=== PATIENT | male | born 1940 | race Caucasian/White ===

== ENCOUNTER 2016-11-20 13:23 | Inpatient (IN) | payer MEDICAID, MEDICARE, OTHER ==
[~2016-11-20] VITALS: Ht 182.9 cm; Wt 92.0 kg
[~2016-11-20 13:23] MED LIST: ASPI-556 PO; ATOR20TA86 PO; BISA10S PR; INSLAN SQ; INSU100C3 SQ; LISI-660 PO; METO-323 PO; PANT40TA25 PO; RIVA20TA PO; SENN8.6T52 PO
[2016-11-20 13:41] LABS: GLUCOSE,POINT OF CARE 241 MG/DL (70-110)
[2016-11-20 14:07] LABS: GLUCOSE COMMENT 1 Doctor Notified; GLUCOSE,POINT OF CARE 282 MG/DL (70-110)
[2016-11-20] MEDS ORDERED: ACETAMINOPHEN 500 MG TABLET PO ONE (14:15)
[2016-11-20] MEDS ORDERED: SODIUM CHLORIDE 0.9% 500 ML IV ONE ×2 (14:15→15:15)
[2016-11-20 14:28] LABS: EOSINOPHILS % (AUTO) 0.4 % (1.0-6.0); HEMATOCRIT 39.8 % (41-53); HEMOGLOBIN 12.8 g/dL (13.5-17.5); LYMPHOCYTES # (AUTO) 0.7 K/uL (1.0-4.8); LYMPHOCYTES % (AUTO) 4.7 % (22.0-44.0); MEAN CORPUSCULAR HEMOGLOBIN 29.2 pg (26.0-34.0); MEAN CORPUSCULAR HGB CONC 32.2 G/dL (31.0-37.0); MEAN CORPUSCULAR VOLUME 91 fL (80-100); MONOCYTES # (AUTO) 0.8 K/uL (0.1-1.0); MONOCYTES % (AUTO) 5.2 % (2.0-9.0); NEUTROPHILS # (AUTO) 13.4 K/uL (1.8-7.7); PLATELET COUNT (AUTO) 465 K/uL (150-450); RED BLOOD CELL COUNT(AUTO) 4.39 MIL/uL (4.50-5.90); RED CELL DISTRIBUTION WIDTH 14.1 % (11.5-14.5); WHITE BLOOD COUNT (AUTO) 14.9 K/uL (4.5-11.0)
[2016-11-20 14:31] LABS: NEUTROPHILS % (AUTO) 89.7 % (40.0-70.0)
[2016-11-20 14:33] LABS: ANION GAP 9 mmol/L (8-16); CALCIUM, TOTAL 8.9 mg/dL (8.8-10.5); CARBON DIOXIDE 29 mmol/L (22-29); CHLORIDE 99 mmol/L (98-107); CREATININE 1.26 mg/dL (0.60-1.30); GLOMERULAR FILTR. RATE CALC 56 mL/min (>60); POTASSIUM 3.1 mmol/L (3.5-5.1); SODIUM SERUM 137 mmol/L (136-145); UREA NITROGEN, BLOOD 22 mg/dL (7-18)
[2016-11-20 14:41] LABS: AMMONIA 29 umol/L (11-32)
[2016-11-20 14:42] LABS: TROPONIN I < 0.02 ng/mL (0.00-0.05)
[2016-11-20 14:55] LABS: B-TYPE NATRIURETIC PEPTIDE 137 pg/mL (0-100)
[2016-11-20 14:57] LABS: ALANINE AMINOTRANSFERASE 17 U/L (12-78); ALBUMIN 2.3 g/dL (3.4-5.0); ASPARTATE AMINOTRANSFERASE 25 U/L (15-37); BILIRUBIN,TOTAL 0.7 mg/dL (0.1-1.0); CREATINE KINASE MB 1.8 ng/mL (0-5); CREATINE KINASE, TOTAL 248 U/L (39-308)
[2016-11-20 15:08] LABS: INR 1.2 (0.9-1.1); PROTHROMBIN TIME 12.3 SEC (9.4-11.6)
[2016-11-20] MEDS ORDERED: POTASSIUM CHLORIDE 20 MEQ ER TABLET PO ONE (15:15)
[2016-11-20 16:29] LABS: RBC MORPHOLOGY COMMENT NORMAL RBC MORPH
[2016-11-20 16:30] LABS: ADD UA MICROSCOPIC YES; APPEARANCE,URINE CLEAR (CLEAR); GLUCOSE, URINE (UA) >=1000 mg/dL (NEGATIVE); KETONES,URINE 40 mg/dL (NEGATIVE); LEUKOCYTE ESTERASE ,URINE NEGATIVE (NEGATIVE); OCCULT BLOOD,URINE NEGATIVE (NEGATIVE); PROTEIN,URINE NEGATIVE (NEGATIVE)
[2016-11-20 16:33] LABS: RBC,URINE None Seen /HPF (0-2); WBC,URINE 0-2 /HPF (0-5)
[2016-11-20] MEDS ORDERED: VANCOMYCIN HCL 1 GM/D5% WATER 200 ML IV ONE (16:45)
[2016-11-20] MEDS ORDERED: CefTRIAXone SODIUM 2 GM in DEXTROSE 5%-WATER 50 ML IV ONE (16:45)
[2016-11-20 17:16] LABS: REFLEX LACTIC ACID? YES YES
[2016-11-20 17:27] LABS: GLUCOSE,POINT OF CARE 243 MG/DL (70-110)
[2016-11-20 18:17] LABS: INFLUENZA TYPE B NEGATIVE FOR TYPE B (NEGATIVE)
[2016-11-20] MEDS ORDERED: SODIUM CHLORIDE 0.9% 1,000 ML IV ONE (19:15)
[2016-11-20 21:41] VITALS: BP 120/64
[2016-11-21] VITALS (7 sets, daily range): BP systolic 108–138; BP diastolic 60–76
[2016-11-21] MEDS ORDERED: INFLUENZA VIRUS VACCINE QVS 2016-17 (3YR+)/PF 60 MCG/0.5 ML SYRINGE IM ONE (03:15)
[2016-11-21] MEDS ORDERED: PNEUMOCOCCAL VACCINE POLYVALENT 0.5 ML VIAL [PPSV23] IM ONE (03:15)
[2016-11-21 06:37] LABS: EOSINOPHILS % (AUTO) 1.1 % (1.0-6.0); HEMATOCRIT 34.3 % (41-53); LYMPHOCYTES # (AUTO) 0.8 K/uL (1.0-4.8); LYMPHOCYTES % (AUTO) 5.4 % (22.0-44.0); MEAN CORPUSCULAR HEMOGLOBIN 29.2 pg (26.0-34.0); MEAN CORPUSCULAR HGB CONC 32.1 G/dL (31.0-37.0); MEAN CORPUSCULAR VOLUME 91 fL (80-100); MONOCYTES # (AUTO) 0.8 K/uL (0.1-1.0); MONOCYTES % (AUTO) 5.8 % (2.0-9.0); NEUTROPHILS # (AUTO) 12.3 K/uL (1.8-7.7); PLATELET COUNT (AUTO) 464 K/uL (150-450); RED BLOOD CELL COUNT(AUTO) 3.76 MIL/uL (4.50-5.90); RED CELL DISTRIBUTION WIDTH 13.9 % (11.5-14.5); WHITE BLOOD COUNT (AUTO) 14.1 K/uL (4.5-11.0)
[2016-11-21] MEDS ORDERED: DEXTROSE 50%-WATER 25 GM/50 ML SYRINGE IVP PRN (06:45)
[2016-11-21] MEDS ORDERED: *CLINICAL-CEFTAROLINE DOSING CLINICAL ONE (06:45)
[2016-11-21] MEDS ORDERED: POTASSIUM CHLORIDE 20 MEQ ER TABLET PO PRN (06:45)
[2016-11-21] MEDS ORDERED: ACETAMINOPHEN 325 MG TABLET PO PRN (07:00)
[2016-11-21] MEDS ORDERED: ONDANSETRON HCL 4 MG/2 ML VIAL IVP PRN (07:00)
[2016-11-21] MEDS ORDERED: MAGNESIUM HYDROXIDE SUSPENSION 30 ML UDCUP PO PRN (07:00)
[2016-11-21] MEDS ORDERED: 0.9% SODIUM CHLORIDE 10 ML SYRINGE IVP PRN (07:00)
[2016-11-21 07:18] LABS: NEUTROPHILS % (AUTO) 87.7 % (40.0-70.0)
[2016-11-21 07:53] LABS: ANION GAP 10 mmol/L (8-16); CALCIUM, TOTAL 8.2 mg/dL (8.8-10.5); CARBON DIOXIDE 26 mmol/L (22-29); CHLORIDE 102 mmol/L (98-107); CREATININE 0.92 mg/dL (0.60-1.30); GLOMERULAR FILTR. RATE CALC > 60 mL/min (>60); POTASSIUM 3.3 mmol/L (3.5-5.1); SODIUM SERUM 138 mmol/L (136-145); UREA NITROGEN, BLOOD 13 mg/dL (7-18)
[2016-11-21] MEDS ORDERED: PANTOPRAZOLE SODIUM 40 MG DR TABLET PO SCH (09:00)
[2016-11-21] MEDS: BISACODYL 10 MG RECTAL RECTAL SUPPOSITORY PR SCH ×2 (09:00→09:17)
[2016-11-21] MEDS: CEFTAROLINE 600 MG/D5W 250 ML IV SCH ×2 (09:15→21:56)
[2016-11-21] MEDS: PANTOPRAZOLE SODIUM 40 MG/VIAL IVP SCH (09:15)
[2016-11-21] MEDS: DOCUSATE SODIUM 100 MG CAPSULE PO SCH ×2 (09:15→21:57)
[2016-11-21] MEDS: SODIUM CHLORIDE 0.9% 1,000 ML IV SCH ×2 (09:15→21:57)
[2016-11-21] MEDS: METOPROLOL SUCCINATE 25 MG ER TABLET PO SCH (09:16)
[2016-11-21] MEDS: SENNA 187 MG TABLET PO SCH (09:16)
[2016-11-21] MEDS: ASPIRIN 81 MG EC TABLET PO SCH (09:16)
[2016-11-21] MEDS: LISINOPRIL 5 MG TABLET PO SCH ×2 (09:17→21:57)
[2016-11-21] MEDS: PIPERACILLIN/TAZO 3.375 GM/D5W 50 ML IV SCH ×3 (11:07→23:37)
[2016-11-21] MEDS ORDERED: IOVERSOL 350 MG/ML 150 ML VIAL ONE (14:14)
[2016-11-21] MEDS ORDERED: BARIUM SULFATE 0.1% SUSPENSION 450 ML BOTTLE ONE (14:15)
[2016-11-21] MEDS ORDERED: SODIUM CHLORIDE 0.9% 100 ML ONE (14:15)
[2016-11-21] MEDS: MULTIVITAMINS WITH MINERALS, THERAPEUTIC TABLET PO SCH (17:53)
[2016-11-21] MEDS: INSULIN ASPART 100 UNITS/ML SQ PRN ×2 (17:54→21:59)
[2016-11-21] MEDS ORDERED: RIVAROXABAN 20 MG TABLET PO SCH (18:00)
[2016-11-21] MEDS: ATORVASTATIN CALCIUM 20 MG TABLET PO SCH (21:57)
[2016-11-21] MEDS: OxyCODONE HCL/ACETAMINOPHEN 5-325 MG TABLET PO PRN (21:57)
[2016-11-22] MEDS: SODIUM CHLORIDE 0.9% 1,000 ML IV SCH ×3 (02:45→22:22)
[2016-11-22 04:29] VITALS: BP 105/62
[2016-11-22] MEDS: PIPERACILLIN/TAZO 3.375 GM/D5W 50 ML IV SCH ×4 (04:32→22:22)
[2016-11-22 06:57] LABS: BASOPHILS # (AUTO) 0.02 K/uL (0.00-0.20); BASOPHILS % (AUTO) 0.2 % (0.0-2.0); EOSINOPHILS # (AUTO) 0.27 K/uL (0.00-0.70); EOSINOPHILS % (AUTO) 2.38 % (1.0-6.0); HEMATOCRIT 32.9 % (41-53); HEMOGLOBIN 10.9 g/dL (13.5-17.5); LYMPHOCYTES # (AUTO) 1.2 K/uL (1.0-4.8); LYMPHOCYTES % (AUTO) 10.3 % (22.0-44.0); MEAN CORPUSCULAR HGB CONC 33.3 G/dL (31.0-37.0); MEAN CORPUSCULAR VOLUME 90 fL (80-100); MONOCYTES # (AUTO) 0.6 K/uL (0.1-1.0); MONOCYTES % (AUTO) 5.7 % (2.0-9.0); NEUTROPHILS # (AUTO) 9.1 K/uL (1.8-7.7); NEUTROPHILS % (AUTO) 81.3 % (40.0-70.0); PLATELET COUNT (AUTO) 382 K/uL (150-450); RED BLOOD CELL COUNT(AUTO) 3.65 MIL/uL (4.50-5.90); RED CELL DISTRIBUTION WIDTH 14.2 % (11.5-14.5); WHITE BLOOD COUNT (AUTO) 11.2 K/uL (4.5-11.0)
[2016-11-22 07:03] LABS: ANION GAP 4 mmol/L (8-16); CARBON DIOXIDE 31 mmol/L (22-29); CHLORIDE 103 mmol/L (98-107); CREATININE 1.12 mg/dL (0.60-1.30); GLOMERULAR FILTR. RATE CALC > 60 mL/min (>60); POTASSIUM 3.5 mmol/L (3.5-5.1); SODIUM SERUM 138 mmol/L (136-145); UREA NITROGEN, BLOOD 16 mg/dL (7-18)
[2016-11-22 07:08] VITALS: BP 105/54
[2016-11-22] MEDS: PANTOPRAZOLE SODIUM 40 MG/VIAL IVP SCH (08:31)
[2016-11-22] MEDS: CEFTAROLINE 600 MG/D5W 250 ML IV SCH ×2 (08:31→20:29)
[2016-11-22] MEDS: DOCUSATE SODIUM 100 MG CAPSULE PO SCH ×2 (08:31→20:29)
[2016-11-22] MEDS: SENNA 187 MG TABLET PO SCH (08:32)
[2016-11-22] MEDS: MULTIVITAMINS WITH MINERALS, THERAPEUTIC TABLET PO SCH (08:32)
[2016-11-22] MEDS: LISINOPRIL 5 MG TABLET PO SCH ×2 (08:32→20:29)
[2016-11-22] MEDS: BISACODYL 10 MG RECTAL RECTAL SUPPOSITORY PR SCH (08:32)
[2016-11-22] MEDS: POTASSIUM CHL 10 MEQ/WATER 50 ML IV PRN ×3 (10:53→15:40)
[2016-11-22 11:08] VITALS: BP 105/54
[2016-11-22] MEDS: ASPIRIN 81 MG EC TABLET PO SCH (12:03)
[2016-11-22] MEDS: METOPROLOL SUCCINATE 25 MG ER TABLET PO SCH (12:03)
[2016-11-22] MEDS: INSULIN ASPART 100 UNITS/ML SQ PRN ×3 (12:07→20:31)
[2016-11-22 15:25] VITALS: BP 104/58
[2016-11-22] MEDS: OxyCODONE HCL/ACETAMINOPHEN 5-325 MG TABLET PO PRN (17:02)
[2016-11-22 17:33] LABS: GLUCOSE,POINT OF CARE 141 MG/DL (70-110)
[2016-11-22 17:33] LABS: GLUCOSE,POINT OF CARE 202 MG/DL (70-110)
[2016-11-22 19:17] VITALS: BP 106/49
[2016-11-22] MEDS: ATORVASTATIN CALCIUM 20 MG TABLET PO SCH (20:29)
[2016-11-22 23:36] VITALS: BP 98/56
[2016-11-23] VITALS (7 sets, daily range): BP systolic 95–118; BP diastolic 50–72
[2016-11-23] MEDS: OxyCODONE HCL/ACETAMINOPHEN 5-325 MG TABLET PO PRN (00:16)
[2016-11-23] MEDS: PIPERACILLIN/TAZO 3.375 GM/D5W 50 ML IV SCH ×2 (04:08→10:00)
[2016-11-23] MEDS: INSULIN ASPART 100 UNITS/ML SQ PRN ×4 (06:16→21:23)
[2016-11-23] MEDS ORDERED: VANCOMYCIN HCL 1.5 GM in DEXTROSE 5%-WATER 250 ML IV ONE (08:15)
[2016-11-23] MEDS: LISINOPRIL 5 MG TABLET PO SCH ×2 (09:00→21:00)
[2016-11-23] MEDS: PANTOPRAZOLE SODIUM 40 MG/VIAL IVP SCH (09:00)
[2016-11-23] MEDS: SENNA 187 MG TABLET PO SCH (09:00)
[2016-11-23] MEDS: BISACODYL 10 MG RECTAL RECTAL SUPPOSITORY PR SCH (09:00)
[2016-11-23] MEDS: MULTIVITAMINS WITH MINERALS, THERAPEUTIC TABLET PO SCH (09:00)
[2016-11-23] MEDS: METOPROLOL SUCCINATE 25 MG ER TABLET PO SCH (09:00)
[2016-11-23] MEDS: DOCUSATE SODIUM 100 MG CAPSULE PO SCH ×2 (09:00→21:00)
[2016-11-23] MEDS: ASPIRIN 81 MG EC TABLET PO SCH (09:00)
[2016-11-23] MEDS: SODIUM CHLORIDE 0.9% 1,000 ML IV SCH (09:01)
[2016-11-23] MEDS: ATORVASTATIN CALCIUM 20 MG TABLET PO SCH (21:19)
[2016-11-23] MEDS: VANCOMYCIN HCL 1 GM/D5% WATER 200 ML IV SCH (21:20)
[2016-11-24] MEDS: SODIUM CHLORIDE 0.9% 1,000 ML IV SCH ×2 (03:40→20:02)
[2016-11-24 04:01] VITALS: BP 132/71
[2016-11-24 05:37] LABS: GLUCOSE,POINT OF CARE 162 MG/DL (70-110)
[2016-11-24] MEDS ORDERED: HYDROGEN PEROXIDE 473 ML SOLUTION ONE (06:44)
[2016-11-24] MEDS ORDERED: SODIUM CHLORIDE 0.9% 1,000 ML IV ONE (07:16)
[2016-11-24 07:33] LABS: GLUCOSE COMMENT 1 Received Meds; GLUCOSE,POINT OF CARE 264 MG/DL (70-110)
[2016-11-24 07:40] LABS: ANION GAP 9 mmol/L (8-16); CALCIUM, TOTAL 8.4 mg/dL (8.8-10.5); CARBON DIOXIDE 28 mmol/L (22-29); CHLORIDE 103 mmol/L (98-107); CREATININE 0.96 mg/dL (0.60-1.30); GLOMERULAR FILTR. RATE CALC > 60 mL/min (>60); SODIUM SERUM 140 mmol/L (136-145); UREA NITROGEN, BLOOD 12 mg/dL (7-18)
[2016-11-24] MEDS ORDERED: FentaNYL CITRATE-PF 100 MCG/2 ML VIAL IVP PRN (08:15)
[2016-11-24] MEDS ORDERED: MEPERIDINE-PF 25 MG/ML SYRINGE IVP PRN (08:15)
[2016-11-24] MEDS ORDERED: HYDROmorphone 2 MG/ML SYRINGE IVP PRN (08:15)
[2016-11-24] MEDS ORDERED: OXYGEN THERAPY IH SCH (08:20)
[2016-11-24] MEDS ORDERED: MEPERIDINE-PF 25 MG/ML SYRINGE ONE (08:38)
[2016-11-24] MEDS ORDERED: HYDROmorphone 2 MG/ML SYRINGE ONE (08:39)
[2016-11-24] MEDS: BISACODYL 10 MG RECTAL RECTAL SUPPOSITORY PR SCH (09:00)
[2016-11-24] MEDS: PANTOPRAZOLE SODIUM 40 MG/VIAL IVP SCH (09:32)
[2016-11-24] MEDS: MULTIVITAMINS WITH MINERALS, THERAPEUTIC TABLET PO SCH (09:32)
[2016-11-24] MEDS: OxyCODONE HCL/ACETAMINOPHEN 5-325 MG TABLET PO PRN (09:32)
[2016-11-24] MEDS: LISINOPRIL 5 MG TABLET PO SCH ×2 (09:32→21:00)
[2016-11-24] MEDS: METOPROLOL SUCCINATE 25 MG ER TABLET PO SCH (09:33)
[2016-11-24] MEDS: DOCUSATE SODIUM 100 MG CAPSULE PO SCH ×2 (09:33→20:03)
[2016-11-24] MEDS: ASPIRIN 81 MG EC TABLET PO SCH (09:33)
[2016-11-24] MEDS: SENNA 187 MG TABLET PO SCH (09:33)
[2016-11-24] MEDS: VANCOMYCIN HCL 1 GM/D5% WATER 200 ML IV SCH ×2 (10:32→20:02)
[2016-11-24 11:04] VITALS: BP 82/53
[2016-11-24] MEDS: INSULIN ASPART 100 UNITS/ML SQ PRN ×3 (11:26→20:36)
[2016-11-24] MEDS ORDERED: PROPOFOL 1% 20 ML VIAL IVP ONE (12:00)
[2016-11-24] MEDS ORDERED: SUCCINYLCHOLINE CHLORIDE 20 MG/ML 10 ML VIAL IVP ONE (12:00)
[2016-11-24] MEDS ORDERED: FentaNYL CITRATE-PF 250 MCG/5 ML VIAL IVP ONE (12:00)
[2016-11-24] MEDS ORDERED: MIDAZOLAM HCL 2 MG/2 ML VIAL IVP ONE (12:00)
[2016-11-24] MEDS ORDERED: LIDOCAINE HCL/PF 2% 5 ML VIAL INJ ONE (12:00)
[2016-11-24 12:36] LABS: GLUCOSE COMMENT 1 Received Meds; GLUCOSE,POINT OF CARE 284 MG/DL (70-110)
[2016-11-24 15:15] VITALS: BP 112/60
[2016-11-24 19:38] VITALS: BP 83/47
[2016-11-24] MEDS: ATORVASTATIN CALCIUM 20 MG TABLET PO SCH (20:03)
[2016-11-24 20:27] LABS: GLUCOSE COMMENT 1 Received Meds; GLUCOSE,POINT OF CARE 356 MG/DL (70-110)
[2016-11-24 23:04] VITALS: BP 101/61
[2016-11-25] MEDS: SODIUM CHLORIDE 0.9% 1,000 ML IV SCH ×2 (04:00→14:00)
[2016-11-25 05:25] VITALS: BP 105/67
[2016-11-25 06:16] LABS: GLUCOSE COMMENT 1 Received Meds; GLUCOSE,POINT OF CARE 312 MG/DL (70-110)
[2016-11-25] MEDS: INSULIN ASPART 100 UNITS/ML SQ PRN ×3 (06:32→17:37)
[2016-11-25] MEDS: OxyCODONE HCL/ACETAMINOPHEN 5-325 MG TABLET PO PRN ×2 (06:33→17:53)
[2016-11-25 07:27] LABS: GLUCOSE COMMENT 1 Received Meds; GLUCOSE,POINT OF CARE 217 MG/DL (70-110)
[2016-11-25] MEDS: VANCOMYCIN HCL 1 GM/D5% WATER 200 ML IV SCH (07:59)
[2016-11-25] MEDS: PANTOPRAZOLE SODIUM 40 MG/VIAL IVP SCH (08:01)
[2016-11-25] MEDS: LISINOPRIL 5 MG TABLET PO SCH (08:01)
[2016-11-25] MEDS: SENNA 187 MG TABLET PO SCH (08:02)
[2016-11-25] MEDS: ASPIRIN 81 MG EC TABLET PO SCH (08:02)
[2016-11-25] MEDS: DOCUSATE SODIUM 100 MG CAPSULE PO SCH (08:02)
[2016-11-25] MEDS: BISACODYL 10 MG RECTAL RECTAL SUPPOSITORY PR SCH (08:03)
[2016-11-25] MEDS: METOPROLOL SUCCINATE 25 MG ER TABLET PO SCH (08:10)
[2016-11-25] MEDS: MULTIVITAMINS WITH MINERALS, THERAPEUTIC TABLET PO SCH (08:10)
[2016-11-25 08:21] VITALS: BP 106/64
[2016-11-25 08:41] LABS: ANION GAP 2 mmol/L (8-16); CARBON DIOXIDE 33 mmol/L (22-29); CHLORIDE 104 mmol/L (98-107); CREATININE 1.12 mg/dL (0.60-1.30); GLOMERULAR FILTR. RATE CALC > 60 mL/min (>60); POTASSIUM 4.1 mmol/L (3.5-5.1); SODIUM SERUM 139 mmol/L (136-145); UREA NITROGEN, BLOOD 18 mg/dL (7-18)
[2016-11-25 11:52] VITALS: BP 105/61
[2016-11-25 12:52] LABS: GLUCOSE COMMENT 1 Received Meds; GLUCOSE,POINT OF CARE 177 MG/DL (70-110)
[2016-11-25] MEDS ORDERED: VANC1PLA10 IV (15:04)
[2016-11-25] MEDS ORDERED: HEPARIN SODIUM 1000 UNITS/NS 500 ML ONE (16:12)
[2016-11-25] MEDS ORDERED: SODIUM CHLORIDE 0.9% 0 ML IV ONE (17:41)
[2016-11-25 17:42] LABS: GLUCOSE COMMENT 1 Received Meds; GLUCOSE,POINT OF CARE 169 MG/DL (70-110)
[2016-11-25] MEDS ORDERED: SODIUM CL IRRIG SOLN BOTTLE 250 ML IRRIG ONE ×2 (17:42→18:02)
[2016-11-28 11:48] LABS: GLUCOSE,POINT OF CARE 283 MG/DL (70-110)
[2016-11-28 11:49] LABS: GLUCOSE COMMENT 1 Received Meds; GLUCOSE,POINT OF CARE 294 MG/DL (70-110)
[2016-11-28 11:49] LABS: GLUCOSE COMMENT 1 Received Meds; GLUCOSE,POINT OF CARE 209 MG/DL (70-110)
[2016-11-28 11:49] LABS: GLUCOSE COMMENT 1 Received Meds; GLUCOSE,POINT OF CARE 163 MG/DL (70-110)
[2016-11-28 11:49] LABS: GLUCOSE COMMENT 1 Received Meds; GLUCOSE,POINT OF CARE 272 MG/DL (70-110)
[2016-11-28 11:52] LABS: GLUCOSE COMMENT 1 Received Meds; GLUCOSE,POINT OF CARE 175 MG/DL (70-110)
[2016-11-28 11:52] LABS: GLUCOSE COMMENT 1 Received Meds; GLUCOSE,POINT OF CARE 285 MG/DL (70-110)
== END 2016-11-25 18:20 | DRG 853 ==
LOC: EMS 13:24 → 5N 18:02 → 6N 11-23 21:35
PROVIDERS: ADMIT Internal Medicine; ATTEND Internal Medicine
PROC: 0JB70ZZ Excision of Back Subcutaneous Tissue and Fascia, Open Approach (ICD-10-PCS; principal; 2016-11-24 07:45)
PROC: 02HV33Z Insertion of Infusion Device into Superior Vena Cava, Percutaneous Approach (ICD-10-PCS; 2016-11-25)
PROC: B518ZZA Fluoroscopy of Superior Vena Cava, Guidance (ICD-10-PCS; 2016-11-25)
DX: A41.02 Sepsis due to Methicillin resistant Staphylococcus aureus (principal); G93.41 Metabolic encephalopathy; E43 Unspecified severe protein-calorie malnutrition; L03.312 Cellulitis of back [any part except buttock and flank]; L02.212 Cutaneous abscess of back [any part, except buttock and flank]; E86.0 Dehydration; D64.9 Anemia, unspecified; E87.6 Hypokalemia; F32.9 Major depressive disorder, single episode, unspecified; E11.65 Type 2 diabetes mellitus with hyperglycemia; K21.9 Gastro-esophageal reflux disease without esophagitis; E78.00 Pure hypercholesterolemia, unspecified; I10 Essential (primary) hypertension; I45.10 Unspecified right bundle-branch block; F20.9 Schizophrenia, unspecified; F17.290 Nicotine dependence, other tobacco product, uncomplicated; Z68.27 Body mass index [BMI] 27.0-27.9, adult; Z88.2 Allergy status to sulfonamides; Z88.1 Allergy status to other antibiotic agents; Z79.899 Other long term (current) drug therapy; Z79.4 Long term (current) use of insulin; Z79.82 Long term (current) use of aspirin; Z90.49 Acquired absence of other specified parts of digestive tract; Z28.21 Immunization not carried out because of patient refusal
CPT/HCPCS: 36245; 36569; 70450; 74177; 82962; 83605; 84132; 87040; 87070; 87081; 87147; 87205; 87804; 88304; 93005; 96361; 96365; 96366; 96367; 99285; C9113; J0330; J0696; J0712; J1170; J1644; J2175; J2250; J2543; J2704; J3010; J3370; J3480; J3490; J7030; J7040; J7050; J7060

== ENCOUNTER → 2017-01-28 | Outpatient (CLI) | payer MEDICARE ==
[~2017-01-28] MED LIST changes: -BISA10S PR; -INSLAN SQ; -INSU100C3 SQ; -RIVA20TA PO; +VANC1PLA10 IV
== END | disposition home or self-care (01) ==
LOC: RADMN 09:24
PROVIDERS: ATTEND Internal Medicine
DX: G31.9 Degenerative disease of nervous system, unspecified (principal); I67.2 Cerebral atherosclerosis; J32.2 Chronic ethmoidal sinusitis; I65.29 Occlusion and stenosis of unspecified carotid artery
CPT/HCPCS: 70450